=== PATIENT | male | born 1930 | race Caucasian/White ===

== ENCOUNTER → 2016-07-31 | Outpatient (CLI) | payer MEDICARE ==
[2016-05-14 17:15] VITALS: BP 130/61
[~2016-07-31] MED LIST: ACET160S PO; AMLO2.5T PO; AMLO5TAB2 PO; ASPI325T4 PO; ASPI81TA44 PO; ASPI81TA50 PO; ATOR20TA58 PO; ATOR40TA59 PO; CARV12.5 PO; CARV25TA2 PO; CARV3.122 PO; CHOL10002 PO; CLOP75TA27 PO; CYAN100031 IM; CYCL1DRO EACHEYE; CYCL1DRO OU; DONE10TA14 PO; DONE10TA34 PO; DONE10TA7 PO; FLUO20CA8 PO; FOLI1TAB16 PO; FURO-69 PO; HYDR-2666 PO; INSU100C4 SQ; INSU100V13 SQ; IOHEXOL 240 MG/ML 50ML VIAL. ONE; LISI-334 PO; LISI40TA PO; MEMA10TA PO; MULT1CAP PO; NAPR220T70 PO; NITR0.4T6 SL; OMEG1CAP6 PO; PHEN300C4 PO; RIVA10TA PO; SENN-37 PO; TAMS0.4C2 PO; VITA400C11 PO
[2016-07-31] MEDS: IOHEXOL 300 MG/ML 75 ML VIAL. IV ONE (11:55)
--- NOTE | 2016-07-31 12:51 | RAD ---
CT of the abdomen and pelvis with contrast, 07/31/2016: History: Diarrhea Multidetector CT imaging was performed following oral and IV administration of contrast. Comparison is made to a study from 04/02/2013. The liver is unremarkable. A small amount of material of increased density is noted layering posteriorly in the gallbladder. This was also present on the previous study. This probably represents tiny calculi. No gallbladder wall thickening or pericholecystic edema is seen. No pancreatic abnormality is detected. The spleen is of normal size. There is moderate bilateral renal cortical scarring. There is no evidence of renal obstruction or a mass. The adrenal glands are unremarkable. There is moderate aortoiliac calcific plaquing without evidence of aneurysm. No abdominal or pelvic adenopathy is seen.. The prostate gland is moderately enlarged. There is a 2.5 cm cystic structure along the posterior wall of the urinary bladder on the left adjacent to the left seminal vesicle. This probably represents a bladder diverticulum. A cyst related to the seminal vesicles less likely. Mild diffuse bladder wall thickening is probably due to some degree of chronic bladder outlet obstruction. No bowel dilatation is evident. No definite mural thickening is seen. The appendix is unremarkable. No free fluid or free air is evident in the abdomen or pelvis. A tubing within the anterior aspect of the abdomen most likely represents the inferior aspect of a CORPORATE FINANCIAL ANALYST shunt tube. There are moderate multilevel degenerative changes in the spine. There is a grade 1 spondylolisthesis at L4-5 due to facet joint arthropathy. IMPRESSION: 1. Cholelithiasis without evidence of cholecystitis. 2. Moderate nonspecific prostatic enlargement. 3. Mild diffuse bladder wall thickening probably due to chronic bladder outlet obstruction. 4. Small bladder diverticulum. 5. Bilateral renal scarring. 6. Extensive aortoiliac atherosclerotic plaquing. 7. No acute abdominal or pelvic abnormality is detected. PQRS Compliance Statement: One or more of the following individualized dose reduction techniques were utilized for this examination: 1. Automated exposure control 2. Adjustment of the mA and/or kV according to patient size 3. Use of iterative reconstruction technique
== END | disposition home or self-care (01) ==
LOC: CT 10:54
PROVIDERS: ATTEND Family Medicine
DX: N32.0 Bladder-neck obstruction (principal); I70.0 Atherosclerosis of aorta; L90.5 Scar conditions and fibrosis of skin; N32.3 Diverticulum of bladder; N40.0 Benign prostatic hyperplasia without lower urinary tract symptoms; M43.16 Spondylolisthesis, lumbar region; M12.88 Other specific arthropathies, not elsewhere classified, other specified site; R19.7 Diarrhea, unspecified
CPT/HCPCS: 74177; Q9966; Q9967

== ENCOUNTER 2016-12-14 09:48 | Emergency (ER) | payer MEDICARE ==
[~2016-12-14 09:48] MED LIST changes: -ASPI325T4 PO; +ASPI325T8 PO; -CLOP75TA27 PO; +CLOP75TA57 PO; -DONE10TA34 PO; +DONE10TA61 PO; -HYDR-2666 PO; +HYDR-2758 PO; -IOHEXOL 240 MG/ML 50ML VIAL. ONE; +NITR0.4T22 SL; -NITR0.4T6 SL
--- NOTE | 2016-12-14 10:11 | PHYS DOC ---
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 Patient did not lose consciousness he is able to go on the floor and on his feet. Patient denies pain anywhere else except on the back of her head. Review of Systems Review of Systems Constitutional: Denies fever or chills [] Eyes: Denies change in visual acuity, redness, or eye pain [] HENT: Denies nasal congestion or sore throat. yes to head pain Respiratory: Denies cough or shortness of breath [] Cardiovascular: No chest pain GI: Denies abdominal pain, Musculoskeletal: Denies back pain or joint pain [] Integument: Denies rash or skin lesions [] Neurologic: Denies headache, focal weakness or sensory changes [] Allergies Allergies Allergies Coded Allergies Type Severity Reaction Last Updated Verified Penicillins Allergy Severe Swelling 03/25/16 Yes Physical Exam Physical Exam Constitutional: Well developed, well nourished, no acute distress, non-toxic appearance. [] HENT: Normocephalic, atraumatic, no signs of basilar skull fracture Eyes:EOMI, conjunctiva normal, no discharge. [] Neck: Normal range of motion, no tenderness, no step-offs Cardiovascular:Heart rate regular rhythm, no murmur, normal perfusion. No chest tenderness no deformity Lungs & Thorax: No tachypnea Abdomen: Soft, nontender, nondistended Skin: Warm, dry, no erythema, no rash. [] Back: No tenderness, no step-offs] Extremities: No tenderness, no cyanosis, no DVT, ROM intact, no edema. [] Neurologic: Alert and oriented X 3, normal motor function, no focal deficits noted. [] Psychologic: Affect normal, judgement normal, mood normal. [] EKG EKG [] Radiology/Procedures Radiology/Procedures There is no evidence of midline shift. Moderate bilateral periventricular white matter hypodensities likely chronic small vessel ischemic disease. Unchanged right frontal ventriculostomy catheter with the tip projecting into the left lateral ventricle region. There is no acute intracranial bleed or extra-axial fluid collection identified. The arthur-white matter differentiation is maintained. The basal cisterns are uneffaced. The visualized paranasal sinuses, mastoid air cells are clear. Impression: 1. No acute intracranial findings.[] Course & Med Decision Making Course & Med Decision Making Pertinent Labs and Imaging studies reviewed. (See chart for details) [] Dragon Disclaimer Dragon Disclaimer This chart was dictated in whole or in part using Voice Recognition software in a busy, high-work load, and often noisy Emergency Department environment. It may contain unintended and wholly unrecognized errors or omissions. Departure Departure: Impression: Primary Impression: Closed head injury Referrals: CHRISTIANO JOSUE MD (PCP) follow up with your doctor in 3-5 days for recheck if you are having any leftover symptoms from todays head injury Patient Instructions: Head Injury, Adult Amena MARINELLI MD Dec 14, 2016 10:11
--- NOTE | 2016-12-14 10:34 | RAD ---
Examination: CT head without contrast History: History of fall, hitting back of the head. Comparison: 05/14/2016 Technique: Axial CT images of the head was performed with contrast PQRS Compliance Statement: One or more of the following individualized dose reduction techniques were utilized for this examination: 1. Automated exposure control 2. Adjustment of the mA and/or kV according to patient size 3. Use of iterative reconstruction technique. Findings: There is no evidence of midline shift. Moderate bilateral periventricular white matter hypodensities likely chronic small vessel ischemic disease. Unchanged right frontal ventriculostomy catheter with the tip projecting into the left lateral ventricle region. There is no acute intracranial bleed or extra-axial fluid collection identified. The arthur-white matter differentiation is maintained. The basal cisterns are uneffaced. The visualized paranasal sinuses, mastoid air cells are clear. Impression: 1. No acute intracranial findings.
[2016-12-14 10:45] VITALS: BP 156/77
== END 2016-12-14 10:50 | disposition home or self-care (01) ==
LOC: ER 09:58
DX: S09.8XXA Other specified injuries of head, initial encounter (principal); I11.0 Hypertensive heart disease with heart failure; I50.9 Heart failure, unspecified; I25.810 Atherosclerosis of coronary artery bypass graft(s) without angina pectoris; E11.9 Type 2 diabetes mellitus without complications; Z88.0 Allergy status to penicillin; W18.09XA Striking against other object with subsequent fall, initial encounter; Y93.89 Activity, other specified; Y99.8 Other external cause status; Y92.89 Other specified places as the place of occurrence of the external cause
CPT/HCPCS: 70450; 99284-25

== ENCOUNTER 2017-07-04 23:26 | Emergency (ER) | payer MEDICARE ==
[~2017-07-04] VITALS: Ht 177.8 cm; Wt 74.8 kg
--- NOTE | 2017-07-04 23:47 | ED.ADGEN ---
Past History Past Medical History: Bronchitis, CAD, CHF, Diabetes, High Cholesterol, Heart Disease, Hypertension, Seizure, UTI, Other Past Surgical History: Coronary Bypass Surgery, Other Smoking: Non-smoker Alcohol Use: None Drug Use: None Adult General Chief Complaint Chief Complaint fall, struck head HPI HPI Patient is a 86 year old male who presents after a fall. Pt was at home when he tripped and fell over his dog (who is blind). He struck his head on the floor but denied LOC. This occurred about 5+ hours prior to arrival and attempted to stay at home, but when family gave the pt a shower, the head wounds started to bleed "a lot" which caused them to come in. 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 Pt has had more difficulty ambulating since the fall, normally uses a walker. No blood thinners reported. Reports chronic sob at baseline. PCP is Dr. Lima. Review of Systems Review of Systems Constitutional: Denies fever or chills [] Eyes: Denies change in visual acuity, redness, or eye pain [] HENT: Denies nasal congestion or sore throat [] Respiratory: Denies cough Cardiovascular: denies chest pain GI: Denies abdominal pain, nausea, vomiting, bloody stools or diarrhea [] : Denies dysuria or hematuria [] Musculoskeletal: reports back pain , denies joint pain [] Integument: Denies rash or skin lesions [] Neurologic: Denies headache, focal weakness or sensory changes [] Allergies Allergies Allergies Coded Allergies Type Severity Reaction Last Updated Verified Penicillins Allergy Severe Swelling 03/25/16 Yes Physical Exam Physical Exam Constitutional: Well developed, well nourished, no acute distress, non-toxic appearance. [] HENT: Normocephalic, proximal scalp hematoma without signs of active bleeding, no bogginess, bilateral external ears normal, oropharynx moist, no oral exudates , nose normal. [] Eyes: PERRLA, EOMI, conjunctiva normal, no discharge. [] Neck: Normal range of motion, no tenderness, supple, no stridor. [] Cardiovascular:Heart rate regular with regular rhythm, no murmur [] Lungs & Thorax: Bilateral breath sounds clear to auscultation, no wheeze or crackles Abdomen:soft, no tenderness, no masses, no pulsatile masses. [] Skin: Warm, dry, no erythema, no rash. [] Back: proximal T spine ttp without stepoffs, otherwise no TTP over the spine, no CVA tenderness. no signs of trauma Extremities: No tenderness, no cyanosis, no clubbing, ROM intact, no edema. no ttp over bilateral hips, moves all extremities, no deformity Neurologic: Alert and oriented , normal motor function, normal sensory function , no focal deficits noted. [] Current Patient Data Vital Signs Vital Signs Date Time Temp Pulse Resp B/P (MAP) Pulse Ox O2 Delivery O2 Flow Rate FiO2 07/05/17 00:53 60 18 129/70 (89) 97 Room Air 07/04/17 23:38 98.5 EKG EKG [] Radiology/Procedures Radiology/Procedures CT head/neck/T spine/pelvis:[] IMPRESSION: 1. No acute intracranial findings. 2. Stable moderate enlargement of the anterior aspect of the third ventricle status post shunting. 3. Mild atrophy and chronic microangiopathic white matter change for patient age. 4. No cervical fracture or malalignment. 5. Moderate to severe cervical degenerative changes as detailed above. Central canal stenosis is up to moderate at C5-6. Multilevel bilateral neural foraminal stenosis is up to moderate/severe from C5 through C7. MRI could further characterize stenosis if there is persistent concern. T spine: IMPRESSION: 1. No acute fracture. 2. Moderate degenerative changes as above. Pelvis: IMPRESSION: 1. No fracture. 2. Grade 1 anterolisthesis at L4-5. Lumbar central canal stenosis is moderate to severe from L3 through L5. Course & Med Decision Making Course & Med Decision Making Pertinent Labs and Imaging studies reviewed. (See chart for details) Pt appears stable, head bleeding controlled. CT's performed. No acute findings. Pt is anxious to go home. Recommend caution and close f/u with PCP. Return precautions given. Final Impression Final Impression closed head injury fall[] Problems: Dragon Disclaimer Dragon Disclaimer This electronic medical record was generated, in whole or in part, using a voice recognition dictation system. RAFFI FORD MD Jul 04, 2017 23:47
--- NOTE | 2017-07-05 01:15 | RAD ---
EXAM: 1. CT HEAD WITHOUT CONTRAST. 2. CT CERVICAL SPINE WITHOUT CONTRAST. HISTORY: Fall with head injury. TECHNIQUE: Computed tomography of the head and cervical spine was performed without intravenous contrast. COMPARISON: September 03, 2015. FINDINGS: There is no intracranial hemorrhage. There is mild chronic microangiopathic white matter change for patient age. A right frontal ventriculostomy catheter crosses the midline and has its tip within the left anteromedial thalamus, unchanged. The anterior aspect of the third ventricle is prominent but unchanged. The lateral ventricles are decompressed. There is overall mild to moderate atrophy for patient age. The visualized paranasal sinuses appear clear. There are changes of bilateral cataract surgery. The temporal bones are unremarkable. The calvarium reveals no suspicious lesions. There are atherosclerotic calcifications of the internal carotid and vertebral arteries. A mass in the left parotid gland measures 2.2 x 1.5 cm. Carotid atherosclerotic calcifications are noted. Cervical alignment is maintained. There is mild osteoarthritis at C1-2. No fractures are identified. Degenerative disc disease is moderate to severe at C6-7, moderate at C5-6 and mild more superiorly. There is no prevertebral soft tissue swelling. There is diffuse moderate to severe facet and uncovertebral osteoarthritis. There are moderate posterior disc-osteophyte complexes from C4 through C7. Central canal stenosis appears moderate at C5-6, mild at C4-5 and mild at C6-7. Neural foraminal stenosis is moderate to severe bilaterally from C5 through C7, and moderate bilaterally at C4-5. IMPRESSION: 1. No acute intracranial findings. 2. Stable moderate enlargement of the anterior aspect of the third ventricle status post shunting. 3. Mild atrophy and chronic microangiopathic white matter change for patient age. 4. No cervical fracture or malalignment. 5. Moderate to severe cervical degenerative changes as detailed above. Central canal stenosis is up to moderate at C5-6. Multilevel bilateral neural foraminal stenosis is up to moderate/severe from C5 through C7. MRI could further characterize stenosis if there is persistent concern. *One or more of the following individualized dose reduction techniques were utilized for this examination: 1. Automated exposure control. 2. Adjustment of the mA and/or kV according to patient size. 3. Use of iterative reconstruction technique. Electronically signed by: Doc Haney MD (07/05/2017 1:12 AM) [place] [id number]
--- NOTE | 2017-07-05 01:20 | RAD ---
EXAM: CT thoracic spine without contrast. HISTORY: Fall. TECHNIQUE: CT of the thoracic spine was performed without intravenous contrast. COMPARISON: None. FINDINGS: There is a mild thoracic dextroscoliosis. There is mild loss of vertebral body height at T7-T9, but this appears chronic. No acute fractures are seen. Degenerative disc disease is severe at T3-4, and moderate throughout the mid thoracic spine. It is mild inferiorly. Facet osteoarthritis is moderate in the upper and mid thoracic spine. Neural foraminal stenosis is at least moderate bilaterally from T2 through T5. There is no clear central canal stenosis throughout. Atherosclerotic calcifications are noted. Coronary artery bypass grafting changes are noted. Lung windows reveal mild dependent atelectasis. IMPRESSION: 1. No acute fracture. 2. Moderate degenerative changes as above. *One or more of the following individualized dose reduction techniques were utilized for this examination: 1. Automated exposure control. 2. Adjustment of the mA and/or kV according to patient size. 3. Use of iterative reconstruction technique. Electronically signed by: Doc Haney MD (07/05/2017 1:18 AM) [facility]
--- NOTE | 2017-07-05 01:24 | RAD ---
EXAM: CT pelvis without contrast. HISTORY: Fall. Pelvic pain. TECHNIQUE: CT of the pelvis was performed without intravenous contrast. COMPARISON: July 31, 2016. FINDINGS: There is grade 1/2 anterolisthesis at L4-5. Central canal stenosis is moderate to severe from L3 through L5. There are laminectomy changes at L4. No fractures are identified. The right sacroiliac joint is partially ankylosed. There is mild sacroiliac osteoarthritis bilaterally. The pubic symphysis appears normal. The joint spaces of both hips are only mildly narrowed. Alignment is normal. There is no soft tissue hematoma. Images of the pelvic organs demonstrate moderate to severe benign prostatic hypertrophy. A bladder diverticulum posteriorly on the left versus a left seminal vesicle cyst measures 3.5 cm is stable. There are diffuse atherosclerotic calcifications. IMPRESSION: 1. No fracture. 2. Grade 1 anterolisthesis at L4-5. Lumbar central canal stenosis is moderate to severe from L3 through L5. *One or more of the following individualized dose reduction techniques were utilized for this examination: 1. Automated exposure control. 2. Adjustment of the mA and/or kV according to patient size. 3. Use of iterative reconstruction technique. Electronically signed by: Doc Haney MD (07/05/2017 1:21 AM) [facility]
[2017-07-05 01:29] VITALS: BP 131/65
== END 2017-07-05 01:29 | disposition home or self-care (01) ==
LOC: ER 23:26
DX: S09.90XA Unspecified injury of head, initial encounter (principal); I11.0 Hypertensive heart disease with heart failure; I50.9 Heart failure, unspecified; E78.00 Pure hypercholesterolemia, unspecified; I25.10 Atherosclerotic heart disease of native coronary artery without angina pectoris; Z87.440 Personal history of urinary (tract) infections; E11.9 Type 2 diabetes mellitus without complications; Z95.1 Presence of aortocoronary bypass graft; Z88.0 Allergy status to penicillin; W01.0XXA Fall on same level from slipping, tripping and stumbling without subsequent striking against object, initial encounter; Y93.89 Activity, other specified; Y92.098 Other place in other non-institutional residence as the place of occurrence of the external cause; Y99.8 Other external cause status
CPT/HCPCS: 70450; 72125; 72128; 72192; 99284-25

== ENCOUNTER 2018-02-20 15:51 | Inpatient (IN) | payer MEDICARE ==
[~2018-02-20] VITALS: Ht 177.8 cm; Wt 70.0 kg
[~2018-02-20 15:51] MED LIST changes: -AMLO2.5T PO; +AMLO2.5T3 PO; -AMLO5TAB2 PO; +AMLO5TAB7 PO; -ASPI81TA44 PO; +ASPI81TA59 PO
--- NOTE | 2018-02-20 17:06 | RAD ---
CT HEAD WO CONTRAST dated 02/20/2018 4:49 PM Indication:fell today, hit right side forehead, headache/dizziness Comparison: 07/05/2017. Technique: Noncontrast images were performed. One or more of the following individualized dose reduction techniques were utilized for this examination: 1. Automated exposure control 2. Adjustment of the mA and/or kV according to patient size 3. Use of iterative reconstruction technique Findings: A ventriculostomy tube remains in place. There is no apparent intracranial hemorrhage or abnormal extra-axial fluid collection. No new area of abnormal density is identified in the brain. The ventricles and basilar cisterns are normally positioned. Bone windows demonstrate no apparent fracture of the skull or abnormal sinus or mastoid opacification. IMPRESSION: No acute intracranial abnormality. Electronically signed by: Josue Graham Jr., MD (02/20/2018 5:02 PM) [facility]
--- NOTE | 2018-02-20 17:23 | EKG ---
[address] [address] Test Date: 2018-02-20 Test Time: 16:44:14 Pat Name: GAUTAM SALEEM Department: Room: Gender: M 2[address] Pressman: : 1930 Requested By: DAVID CAUSEY Order Number: [id number] Reading MD: Antony Meza MD Measurements Intervals [place] Rate: 56 P: -3 WV: 198 QRS: -56 QRSD: 140 T: 93 QT: 472 QTc: 458 Interpretive Statements SINUS RHYTHM IVCD CONSIDER LVH Electronically Signed On 02-23-2018 10:04:27 INSECT CONTROL AIDE by Antony Meza MD
--- NOTE | 2018-02-20 17:24 | PHYS DOC ---
Past History Past Medical History: Anemia, Arthritis, Dementia, Depression Past Surgical History: Tonsillectomy Smoking: Non-smoker Alcohol Use: Rarely Drug Use: None Adult General Chief Complaint Chief Complaint: MECHANICAL FALL HPI HPI 87-year-old male presents via private vehicle with fall at home. Patient has dementia at baseline. The patient does not remember what happened. His accompanies him tells me that she did not witness his fall. When she found him he was going to the restroom in the trashcan and had a small area of blood on his right forehead. He was acting "more out of it than usual". This lasted until they got to the emergency room. The patient has improved and is back at baseline now according to his . Patient was recently diagnosed with UTI and treated with antibiotics. He has also had frequent diarrhea for several months. Patient denies any pain except for headache. Review of Systems Review of Systems Constitutional: Denies fever or chills [] Eyes: Denies change in visual acuity, redness, or eye pain [] HENT: Denies nasal congestion or sore throat [] Respiratory: Denies cough or shortness of breath [] Cardiovascular: No additional information not addressed in HPI [] GI: Denies abdominal pain, nausea, vomiting, bloody stools or diarrhea [] : Denies dysuria or hematuria [] Musculoskeletal: Denies back pain or joint pain [] Integument: Forehead abrasion[] Neurologic: Denies headache, focal weakness or sensory changes [] Endocrine: Denies polyuria or polydipsia [] All other systems were reviewed and found to be within normal limits, except as documented in this note. Allergies Allergies Allergies Coded Allergies Type Severity Reaction Last Updated Verified Penicillins Allergy Severe Swelling 03/25/16 Yes Physical Exam Physical Exam Constitutional: Well developed, well nourished, no acute distress, non-toxic appearance. [] HENT: Normocephalic, atraumatic, bilateral external ears normal, oropharynx moist, no oral exudates, nose normal. [] Eyes: PERRLA, EOMI, conjunctiva normal, no discharge. [] Neck: Normal range of motion, no tenderness, supple, no stridor. [] Cardiovascular:Heart rate regular rhythm, no murmur [] Lungs & Thorax: Bilateral breath sounds clear to auscultation [] Abdomen: Bowel sounds normal, soft, no tenderness, no masses, no pulsatile masses. [] Skin: Abrasion on right forehead[] Back: No tenderness, no CVA tenderness. [] Extremities: No tenderness, no cyanosis, no clubbing, ROM intact, no edema. [] Neurologic: Alert and oriented to self and place. Normal motor function, normal sensory function, no focal deficits noted. Impaired memory.[] Psychologic: Affect normal, mood normal. [] EKG EKG Sinus rhythm, rate 56, left axis deviation, intraventricular block, no ST elevations or depressions.[] Radiology/Procedures Radiology/Procedures [] Impressions: CT HEAD WO CONTRAST dated 02/20/2018 4:49 PM Indication:fell today, hit right side forehead, headache/dizziness Comparison: 07/05/2017. Technique: Noncontrast images were performed. One or more of the following individualized dose reduction techniques were utilized for this examination: 1. Automated exposure control 2. Adjustment of the mA and/or kV according to patient size 3. Use of iterative reconstruction technique Findings: A ventriculostomy tube remains in place. There is no apparent intracranial hemorrhage or abnormal extra-axial fluid collection. No new area of abnormal density is identified in the brain. The ventricles and basilar cisterns are normally positioned. Bone windows demonstrate no apparent fracture of the skull or abnormal sinus or mastoid opacification. IMPRESSION: No acute intracranial abnormality. Electronically signed by: Josue Graham Jr., MD (02/20/2018 5:02 PM) [facility] DICTATED AND SIGNED BY: JOSUE GRAHAM Jr, MD DATE: 02/20/18 1700 CC: CHRISTIANO JOSUE MD; DAVID CAUSEY DO ~ Course & Med Decision Making Course & Med Decision Making Pertinent Labs and Imaging studies reviewed. (See chart for details) Patient's head CT is negative for acute findings. His EKG is unremarkable. His labs are unremarkable. His urine is pending. Even though the patient appears to back at baseline, his spouse is concerned about his altered mental status earlier. I agree that it is reasonable to observe the patient further in the hospital. He would also be able to have his diarrhea more thoroughly evaluated. Dr. Luz agreed to admit the patient. Dragon Disclaimer Dragon Disclaimer This electronic medical record was generated, in whole or in part, using a voice recognition dictation system. Departure Departure: Referrals: CHRISTIANO JOSUE MD (PCP) DAVID CAUSEY DO Feb 20, 2018 17:24
[2018-02-20 17:31] LABS: BASO # 0.1 x10^3/uL (0.0-0.2); BASO % 1 % (0-3); EOS # 0.2 x10^3/uL (0.0-0.7); EOS % 2 % (0-3); HEMATOCRIT 40.9 % (39.0-53.0); HEMOGLOBIN 13.5 g/dL (13.0-17.5); LYMPH # 0.8 x10^3/uL (1.0-4.8); LYMPH % 8 % (24-48); MEAN CORPUSCULAR HEMOGLOBIN 31 pg (25-35); MEAN CORPUSCULAR HGB CONC 33 g/dL (31-37); MEAN CORPUSCULAR VOLUME 93 fL (79-100); MONO # 0.6 x10^3/uL (0.0-1.1); MONO % 6 % (0-9); NEUT # 8.3 x10^3uL (1.8-7.7); NEUT % 82 % (31-73); PLATELET COUNT 245 x10^3/uL (140-400); RED BLOOD COUNT 4.41 x10^6/uL (4.30-5.70); RED CELL DISTRIBUTION WIDTH 14.1 % (11.5-14.5)
[2018-02-20 17:38] LABS: CALCIUM 8.9 mg/dL (8.5-10.1); CREATININE 1.1 mg/dL (0.7-1.3); POTASSIUM 4.2 mmol/L (3.5-5.1)
[2018-02-20] MEDS ORDERED: ONDANSETRON PF 4 MG/2 ML VIAL. IV PRN (18:45)
[2018-02-20 19:22] LABS: BILIRUBIN,URINE NEG (NEG); CLARITY,URINE CLEAR; COLOR,URINE YELLOW; GLUCOSE,URINE NEG (NEG); HYALINE CASTS, URINE MOD /HPF; NITRITE,URINE NEG (NEG); UROBILINOGEN,URINE 0.2 mg/dL (0.2 mg/dL)
[2018-02-20 19:23] LABS: SQUAMOUS EPITHELIAL CELL,UR FEW /LPF
[2018-02-20 19:27] LABS: BACTERIA,URINE 0 /HPF (0-FEW); RBC,URINE OCC /HPF (0-2)
[2018-02-20] MEDS ORDERED: POTASSIUM CHLORIDE 20MEQ 100 ML IV ONE (19:47)
[2018-02-20 21:14] VITALS: BP 189/84
--- NOTE | 2018-02-20 21:14 | NUR ---
The patient, GAUTAM SALEEM, 87 y/o, M admitted by GEOVANNA BARNEY DO, was given written information regarding hospital policies, unit procedures and contact persons. Valuables were checked and logged. Pt requested a box lunch and pt ate 100%. Pt is forgetful, and pt's and son was answering questions for the patient while he rested. Call light at bedside. Will continue to monitor.
[2018-02-20] MEDS ORDERED: CARV6.252 PO (22:03)
[2018-02-20] MEDS ORDERED: LISI-338 PO (22:03)
[2018-02-20] MEDS ORDERED: NITROGLYCERIN SUBLINGUAL 0.4 MG BOTTLE OF 25. SL PRN (22:15)
[2018-02-20] MEDS ORDERED: ATORVASTATIN CALCIUM 20 MG TABLET PO SCH (23:00)
[2018-02-20] MEDS ORDERED: MEMANTINE 5 MG TABLET. PO ONE (23:00)
[2018-02-20] MEDS ORDERED: PHENYTOIN SODIUM EXTENDED 100 MG CAPSULE PO SCH (23:00)
[2018-02-20] MEDS ORDERED: TAMSULOSIN 0.4 MG CAP.ER.24H. PO SCH (23:00)
[2018-02-20] MEDS: CARVEDILOL 6.25 MG TABLET PO SCH (23:13)
--- NOTE | 2018-02-21 04:29 | PDOC1 ---
History and Physical HPI: HPI: 7-year-old male presents via private vehicle with fall at home. Patient has dementia at baseline. The patient does not remember what happened. His accompanies him tells me that she did not witness his fall. When she found him [facility] and had a small area of blood on his right forehead. He was acting "more out of it than usual". This lasted until they got to the emergency room. The patient has improved and is back at baseline now according to his . Patient was recently diagnosed with UTI and treated with antibiotics. He has also had frequent diarrhea for several months. Patient denies any pain except for headache. 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 Heme/Onc: Anemia NOS Psych: Depression Musculoskeletal: Osteoarthritis Past Surgical History: PSH: tonsillectomy Social History: Smoke: No Alcohol: rare Drugs: None Allergies: Allergies: Coded Allergies: Penicillins (Verified Allergy, Severe, Swelling, 03/25/16) Current Medications: Current Medications: Current Medications Medications (Trade) Dose Ordered Sig/Chacha Start Time Stop Time Status Last Admin Dose Admin Aspirin (Children'S Aspirin) 81 mg DAILYWBKFT 02/21/18 08:00 Atorvastatin Calcium (Lipitor) 40 mg QHS 02/20/18 23:00 02/20/18 23:12 40 MG Carvedilol (Coreg) 6.25 mg BIDWMEALS 02/20/18 23:00 02/20/18 23:13 6.25 MG Cyclosporine (Restasis) 1 drop BID 02/21/18 09:00 Donepezil HCl (Aricept) 20 mg DAILY 02/21/18 09:00 Fluoxetine HCl (PROzac) 20 mg DAILY 02/21/18 09:00 Folic Acid (Folic Acid) 1 mg DAILY 02/21/18 09:00 Lisinopril (Prinivil) 5 mg DAILY 02/21/18 09:00 Memantine (Namenda) 10 mg 1X ONCE 02/20/18 23:00 02/20/18 23:01 DC 02/20/18 23:12 10 MG Multivitamins/ Calcium (Thera-M Plus) 1 tab DAILY 02/21/18 09:00 Nitroglycerin (Nitrostat) 0.4 mg PRN Q5MIN PRN 02/20/18 22:15 Ondansetron HCl (Zofran) 4 mg PRN Q4HRS PRN 02/20/18 18:45 02/21/18 18:44 Phenytoin Sodium (Dilantin) 300 mg QHS 02/20/18 23:00 02/20/18 23:12 300 MG Potassium Chloride 100 ml @ As Directed STK-MED ONCE 02/20/18 19:47 02/20/18 19:48 DC Tamsulosin HCl (Flomax) 0.4 mg HS 02/20/18 23:00 02/20/18 23:13 0.4 MG Vitamin D (Vitamin D3) 1,000 unit DAILY 02/21/18 09:00 Vitamin E 400 unit DAILY 02/21/18 09:00 ROS: ROS: Constitutional: No fever or chills Eyes: No eye pain or blurred vision Skin: No rash or itching Cardiovascular: No chest pain, syncope, palpitations, dyspnea on exertion, or edema Respiratory: No cough or difficulty breathing Gastrointestinal: No nausea, vomiting, or abdominal pain Neurologic: No headaches or focal neurologic deficits Endocrine: No heat or cold intolerance Genitourinary: No incontinence or hematuria Musculoskeletal: No joint pain or swelling Lymphatics: No enlarged lymph nodes Psychiatric: No anxiety or depression PE: PE: Gen.: Alert, pleasant, no apparent distress HEENT: Normocephalic atraumatic, PERRLA EOMI, no scleral icterus, oral mucosa pink and moist Neck: Supple, no lymphadenopathy, nontender Cardiovascular: Normal S1 and S2 no murmurs Pulmonary: Lungs are clear bilaterally with good air movement no respiratory distress Abdomen: Soft nontender non-distended, bowel sounds present no masses Extremities: No clubbing, cyanosis or edema Neuro: Alert and oriented 3, cranial nerves II through XII grossly intact, no lateralizing neuro deficits Skin: Warm, dry Vitals: Vitals: Vital Signs Date Time Temp Pulse Resp B/P (MAP) Pulse Ox O2 Delivery O2 Flow Rate FiO2 02/20/18 23:13 63 189/84 02/20/18 21:14 97.7 20 99 Room Air Labs: Labs: Laboratory Tests Test 02/20/18 17:00 02/20/18 18:59 02/20/18 21:40 White Blood Count 10.0 x10^3/uL (4.0-11.0) Red Blood Count 4.41 x10^6/uL (4.30-5.70) Hemoglobin 13.5 g/dL (13.0-17.5) Hematocrit 40.9 % (39.0-53.0) Mean Corpuscular Volume 93 fL (79-100) Mean Corpuscular Hemoglobin 31 pg (25-35) Mean Corpuscular Hemoglobin Concent 33 g/dL (31-37) Red Cell Distribution Width 14.1 % (11.5-14.5) Platelet Count 245 x10^3/uL (140-400) Neutrophils (%) (Auto) 82 % (31-73) Lymphocytes (%) (Auto) 8 % (24-48) Monocytes (%) (Auto) 6 % (0-9) Eosinophils (%) (Auto) 2 % (0-3) Basophils (%) (Auto) 1 % (0-3) Neutrophils # (Auto) 8.3 x10^3uL (1.8-7.7) Lymphocytes # (Auto) 0.8 x10^3/uL (1.0-4.8) Monocytes # (Auto) 0.6 x10^3/uL (0.0-1.1) Eosinophils # (Auto) 0.2 x10^3/uL (0.0-0.7) Basophils # (Auto) 0.1 x10^3/uL (0.0-0.2) Sodium Level 134 mmol/L (136-145) Potassium Level 4.2 mmol/L (3.5-5.1) Chloride Level 99 mmol/L (98-107) Carbon Dioxide Level 30 mmol/L (21-32) Anion Gap 5 (6-14) Blood Urea Nitrogen 19 mg/dL (8-26) Creatinine 1.1 mg/dL (0.7-1.3) Estimated GFR (Cockcroft-Gault) 63.0 Glucose Level 177 mg/dL (70-99) Calcium Level 8.9 mg/dL (8.5-10.1) Troponin I Quantitative < 0.017 ng/mL (0-0.055) Urine Collection Type Void Urine Color Yellow Urine Clarity Clear Urine pH 7.0 Urine Specific [place] 1.020 Urine Protein 100 mg/dl (NEG-TRACE) Urine Glucose (UA) Neg mg/dL (NEG) Urine Ketones (Stick) Neg mg/dL (NEG) Urine Blood Neg (NEG) Urine Nitrite Neg (NEG) Urine Bilirubin Neg (NEG) Urine Urobilinogen Dipstick 0.2 mg/dL (0.2 mg/dL) Urine Leukocyte Esterase Neg (NEG) Urine RBC Occ /HPF (0-2) Urine WBC 1-4 /HPF (0-4) Urine Squamous Epithelial Cells Few /LPF Urine Bacteria 0 /HPF (0-FEW) Urine Hyaline Casts Mod /HPF Urine Mucus Slight /LPF Glucose (Fingerstick) 124 mg/dL (70-99) Images: Images: PATIENT: GAUTAM SALEEM ACCOUNT: [id number] : 1930 LOCATION: ER AGE: 87 SEX: M EXAM STATUS: REG ER ORD. PHYSICIAN: DAVID CAUSEY DO REASON: fall PROCEDURE: CT HEAD WO CONTRAST CT HEAD WO CONTRAST dated 02/20/2018 4:49 PM Indication:fell today, hit right side forehead, headache/dizziness Comparison: 07/05/2017. Technique: Noncontrast images were performed. One or more of the following individualized dose reduction techniques were utilized for this examination: 1. Automated exposure control 2. Adjustment of the mA and/or kV according to patient size 3. Use of iterative reconstruction technique Findings: A ventriculostomy tube remains in place. There is no apparent intracranial hemorrhage or abnormal extra-axial fluid collection. No new area of abnormal density is identified in the brain. The ventricles and basilar cisterns are normally positioned. Bone windows demonstrate no apparent fracture of the skull or abnormal sinus or mastoid opacification. IMPRESSION: No acute intracranial abnormality. Electronically signed by: Josue Graham Jr., MD (02/20/2018 5:02 PM) [facility] GEOVANNA BARNEY DO Feb 21, 2018 04:29
[2018-02-21 05:23] VITALS: BP 151/74
[2018-02-21] MEDS ORDERED: ASPIRIN 81 MG TAB.CHEW PO SCH (08:00)
[2018-02-21 08:02] VITALS: BP 151/74
[2018-02-21] MEDS: CARVEDILOL 6.25 MG TABLET PO SCH (08:02)
--- NOTE | 2018-02-21 08:18 | PDOC1 ---
History of Present Illness History of Present Illness 87-year-old male presented to ED yesterday via private vehicle with reported fall at home. Patient has some dementia at baseline. Fall was reportedly unwitnessed. When his spouse found him he was going to the restroom in the trash can and had a small area of blood on his right forehead. She felt he was acting "more out of it than usual". This lasted until they got to the emergency room. The patient had improved to his baseline on ED arrival according to his . Patient was recently diagnosed with UTI and treated with antibiotics. Also some loose stools no blood or fever. Patient was admitted for observation overnight CT of the head was negative in the emergency department. Patient's nurse states that he has been alert and oriented and appropriate. He has not had any loose stools nausea vomiting or abdominal pain complaints. He has been requesting to go home. I find him sitting on the edge of his bed getting ready to use his urinal. He tells me that he remembers tripping and falling at home hitting his head on a shelf. He is unable to tell me if he lost consciousness but does deny neck pain nausea photophobia new focal neurologic deficits, and denies headache. He does not want any further evaluation and is simply wants to go home. 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 See HPI for pertinent positives and negative responses, other holt all other systems are negative, non pertinent or non contributory Constitutional: No: Fever, Chills, Sweats, Weakness Eyes: No: Eye Pain, Photophobia ENT: No: Ear pain, Ear discharge, Nose discharge, Nose congestion Respiratory: No: Cough, Shortness of breath Cardiovascular: No: Chest Pain, Palpitations Gastrointestinal: No: Nausea, Vomiting Musculoskeletal: No: Joint Pain, Joint Stiffness Neurological: No: Headaches, Impaired Coord/balance, Memory Loss, Numbness/ Tingling Medications Current Medications Ondansetron HCl (Zofran) 4 mg PRN Q4HRS PRN IV NAUSEA/VOMITING; Start at 18:45; Stop 02/21/18 at 18:44 Potassium Chloride 100 ml @ As Directed STK-MED ONCE IV ; Start 02/20/18 at 19 :47; Stop 02/20/18 at 19:48; Status DC Vitamin D (Vitamin D3) 1,000 unit DAILY PO Last administered on 02/21/18at 08: 03; Start 02/21/18 at 09:00 Cyclosporine (Restasis) 1 drop BID OU ; Start 02/21/18 at 09:00 Nitroglycerin (Nitrostat) 0.4 mg PRN Q5MIN PRN SL CHEST PAIN; Start 02/20/18 at 22:15 Tamsulosin HCl (Flomax) 0.4 mg HS PO Last administered on 02/20/18at 23:13; Start 02/20/18 at 23:00 Aspirin (Children'S Aspirin) 81 mg DAILYWBKFT PO Last administered on at 08:03; Start 02/21/18 at 08:00 Atorvastatin Calcium (Lipitor) 40 mg QHS PO Last administered on 02/20/18at 23: 12; Start 02/20/18 at 23:00 Carvedilol (Coreg) 6.25 mg BIDWMEALS PO Last administered on 02/21/18at 08:02; Start 02/20/18 at 23:00 Donepezil HCl (Aricept) 20 mg DAILY PO Last administered on 02/21/18at 08:02; Start 02/21/18 at 09:00 Fluoxetine HCl (PROzac) 20 mg DAILY PO ; Start 02/21/18 at 09:00 Folic Acid (Folic Acid) 1 mg DAILY PO Last administered on 02/21/18at 08:02; Start 02/21/18 at 09:00 Lisinopril (Prinivil) 5 mg DAILY PO Last administered on 02/21/18at 08:02; Start 02/21/18 at 09:00 Memantine (Namenda) 10 mg BID PO ; Start 02/21/18 at 09:00 Multivitamins/ Calcium (Thera-M Plus) 1 tab DAILY PO Last administered on 02/21at 08:03; Start 02/21/18 at 09:00 Phenytoin Sodium (Dilantin) 300 mg QHS PO Last administered on 02/20/18at 23:12 ; Start 02/20/18 at 23:00 Vitamin E 400 unit DAILY PO Last administered on 02/21/18at 08:02; Start 02/21 at 09:00 Memantine (Namenda) 10 mg 1X ONCE PO Last administered on 02/20/18at 23:12; Start 02/20/18 at 23:00; Stop 02/20/18 at 23:01; Status DC Active Scripts Active Reported Carvedilol 6.25 Mg Tablet 6.25 Mg PO BIDWMEALS Lisinopril 5 Mg Tablet 5 Mg PO DAILY Folic Acid 1 Mg Tablet 1 Mg PO DAILY Aricept (Donepezil Hcl) 10 Mg Tablet 20 Mg PO DAILY Namenda (Memantine Hcl) 10 Mg Tablet 10 Mg PO BID Aspir-Low (Aspirin) 81 Mg Tablet.dr 81 Mg PO DAILY Atorvastatin Calcium 40 Mg Tablet 40 Mg PO QHS Restasis (Cyclosporine) 1 Each Droperette 1 Drop OU BID NITROGLYCERIN SubLingual (Nitroglycerin) 0.4 Mg Tab.subl 0.4 Mg SL PRN Q5MIN PRN Vitamin E 400 Unit Capsule 400 Unit PO DAILY Therapeutic Vit-Mineral Cap (Multivitamins With Min No.7/Fa) 1 Mg Capsule 1 Mg PO DAILY Tamsulosin Hcl 0.4 Mg Cap.er.24h 0.4 Mg PO HS Phenytoin Sodium Extended 300 Mg Capsule 300 Mg PO QHS Fluoxetine Hcl 20 Mg Capsule 20 Mg PO DAILY Fish Oil 1,000 Mg Capsule ([place]-3 Fatty Acids/Fish Oil) 1 Each Capsule 1 Each PO DAILY Vitamin D (Cholecalciferol (Vitamin D3)) 1,000 Unit Tablet 1,000 Unit PO DAILY Exam Vital Signs Vital Signs Date Time Temp Pulse Resp B/P (MAP) Pulse Ox O2 Delivery O2 Flow Rate FiO2 02/21/18 08:02 64 151/74 02/21/18 05:23 20 96 Room Air 02/20/18 21:14 97.7 General Appearance: Alert, Oriented X3, Cooperative, No acute distress HEENT: Atraumatic (negative Beltre sign), EOMI, Mucous membr. moist/pink Respiratory: Clear to auscultation, Normal air movement Heart: Regular rate, No murmurs Abdominal: Soft, No tenderness Neuro: Normal gait, Normal speech, Normal tone Psych/Mental Status: Mental status NL, Mood NL Assessment/Plan Assessment/Plan Mechanical fall Concussion Recent history of treated urinary tract infection and loose stools I advised concussion precautions and stressed fall prevention at home. Follow- up with PCP in the next 3-5 days for recheck return to ED with any new or changing symptoms. COURSE Allergies Coded Allergies Type Severity Reaction Last Updated Verified Penicillins Allergy Severe Swelling 03/25/16 Yes Laboratory Tests Test 02/20/18 17:00 02/20/18 18:59 02/20/18 21:40 02/21/18 07:51 White Blood Count 10.0 x10^3/uL (4.0-11.0) Red Blood Count 4.41 x10^6/uL (4.30-5.70) Hemoglobin 13.5 g/dL (13.0-17.5) Hematocrit 40.9 % (39.0-53.0) Mean Corpuscular Volume 93 fL (79-100) Mean Corpuscular Hemoglobin 31 pg (25-35) Mean Corpuscular Hemoglobin Concent 33 g/dL (31-37) Red Cell Distribution Width 14.1 % (11.5-14.5) Platelet Count 245 x10^3/uL (140-400) Neutrophils (%) (Auto) 82 % (31-73) Lymphocytes (%) (Auto) 8 % (24-48) Monocytes (%) (Auto) 6 % (0-9) Eosinophils (%) (Auto) 2 % (0-3) Basophils (%) (Auto) 1 % (0-3) Neutrophils # (Auto) 8.3 x10^3uL (1.8-7.7) Lymphocytes # (Auto) 0.8 x10^3/uL (1.0-4.8) Monocytes # (Auto) 0.6 x10^3/uL (0.0-1.1) Eosinophils # (Auto) 0.2 x10^3/uL (0.0-0.7) Basophils # (Auto) 0.1 x10^3/uL (0.0-0.2) Sodium Level 134 mmol/L (136-145) Potassium Level 4.2 mmol/L (3.5-5.1) Chloride Level 99 mmol/L (98-107) Carbon Dioxide Level 30 mmol/L (21-32) Anion Gap 5 (6-14) Blood Urea Nitrogen 19 mg/dL (8-26) Creatinine 1.1 mg/dL (0.7-1.3) Estimated GFR (Cockcroft-Gault) 63.0 Glucose Level 177 mg/dL (70-99) Calcium Level 8.9 mg/dL (8.5-10.1) Troponin I Quantitative < 0.017 ng/mL (0-0.055) Urine Collection Type Void Urine Color Yellow Urine Clarity Clear Urine pH 7.0 Urine Specific [place] 1.020 Urine Protein 100 mg/dl (NEG-TRACE) Urine Glucose (UA) Neg mg/dL (NEG) Urine Ketones (Stick) Neg mg/dL (NEG) Urine Blood Neg (NEG) Urine Nitrite Neg (NEG) Urine Bilirubin Neg (NEG) Urine Urobilinogen Dipstick 0.2 mg/dL (0.2 mg/dL) Urine Leukocyte Esterase Neg (NEG) Urine RBC Occ /HPF (0-2) Urine WBC 1-4 /HPF (0-4) Urine Squamous Epithelial Cells Few /LPF Urine Bacteria 0 /HPF (0-FEW) Urine Hyaline Casts Mod /HPF Urine Mucus Slight /LPF Glucose (Fingerstick) 124 mg/dL (70-99) 143 mg/dL (70-99) Current Medications Medications (Trade) Dose Ordered Sig/Chacha Route PRN Reason Start Time Stop Time Status Last Admin Dose Admin Ondansetron HCl (Zofran) 4 mg PRN Q4HRS PRN IV NAUSEA/VOMITING 02/20/18 18:45 02/21/18 18:44 Potassium Chloride 100 ml @ As Directed STK-MED ONCE IV 02/20/18 19:47 02/20/18 19:48 DC Vitamin D (Vitamin D3) 1,000 unit DAILY PO 02/21/18 09:00 02/21/18 08:03 Cyclosporine (Restasis) 1 drop BID OU 02/21/18 09:00 Nitroglycerin (Nitrostat) 0.4 mg PRN Q5MIN PRN SL CHEST PAIN 02/20/18 22:15 Tamsulosin HCl (Flomax) 0.4 mg HS PO 02/20/18 23:00 02/20/18 23:13 Aspirin (Children'S Aspirin) 81 mg DAILYWBKFT PO 02/21/18 08:00 02/21/18 08:03 Atorvastatin Calcium (Lipitor) 40 mg QHS PO 02/20/18 23:00 02/20/18 23:12 Carvedilol (Coreg) 6.25 mg BIDWMEALS PO 02/20/18 23:00 02/21/18 08:02 Donepezil HCl (Aricept) 20 mg DAILY PO 02/21/18 09:00 02/21/18 08:02 Fluoxetine HCl (PROzac) 20 mg DAILY PO 02/21/18 09:00 Folic Acid (Folic Acid) 1 mg DAILY PO 02/21/18 09:00 02/21/18 08:02 Lisinopril (Prinivil) 5 mg DAILY PO 02/21/18 09:00 02/21/18 08:02 Memantine (Namenda) 10 mg BID PO 02/21/18 09:00 Multivitamins/ Calcium (Thera-M Plus) 1 tab DAILY PO 02/21/18 09:00 02/21/18 08:03 Phenytoin Sodium (Dilantin) 300 mg QHS PO 02/20/18 23:00 02/20/18 23:12 Vitamin E 400 unit DAILY PO 02/21/18 09:00 02/21/18 08:02 Memantine (Namenda) 10 mg 1X ONCE PO 02/20/18 23:00 02/20/18 23:01 DC 02/20/18 23:12 Orders Procedure Category Date Status Time Vital Signs ER 02/20/18 Transmitted 16:33 Bp Monitoring ER 02/20/18 Transmitted 16:33 Maintenance Electrician ER 02/20/18 Transmitted 16:33 Saline Lock ER 02/20/18 Transmitted 16:33 Cbc W Autodiff LAB 02/20/18 Complete 16:33 Basic Metabolic Panel LAB 02/20/18 Complete 16:33 Troponin I LAB 02/20/18 Complete 16:33 Ua, Cult If Indicated LAB 02/20/18 Complete 16:33 Ct Head Wo Contrast CT 02/20/18 Resulted 16:33 12 Lead Ekg EKG 02/20/18 Complete 16:33 Pulse Oximetry: EMERSON 02/20/18 In Process Standing Order 16:33 [place] Order ADT 02/20/18 Transmitted 18:33 Code Status CODE 02/20/18 Transmitted 18:33 Vital Signs, Per EMERSON 02/20/18 In Process Protocol 18:33 [place]e Diabetic DIET 02/21/18 Transmitted Assoc Diet Breakfast Ambulate With EMERSON 02/20/18 In Process Assistance 18:33 Ondansetron Pf PHA 02/20/18 In Process (Zofran) 18:45 Neuro Check Q 4 Hrs EMERSON 02/20/18 In Process 18:33 Potassium Chloride PHA 02/20/18 Complete 20meq (Kcl Premix 20m 19:47 Apply Vlad Stockings EMERSON 02/20/18 In Process And Epi Wr 19:58 Pneumatic Compression EMERSON 02/20/18 In Process Device 19:58 Fall Precautions EMERSON 02/20/18 In Process 20:01 Admit Orders ADT 02/20/18 Transmitted Mrsa, Pcr LAB 02/20/18 In Process 21:42 Cholecalciferol PHA 02/21/18 In Process (Vitamin D3) (Vitamin 09:00 Cyclosporine 0.05% PHA 02/21/18 In Process Opth (Restasis) 09:00 Nitroglycerin PHA 02/20/18 In Process Sublingual (Nitrostat) 22:15 Aspirin (Children's PHA 02/21/18 In Process Aspirin) 08:00 Donepezil Hcl PHA 02/21/18 In Process (Aricept) 09:00 Fluoxetine Hcl PHA 02/21/18 In Process (Prozac) 09:00 Folic Acid (Folic PHA 02/21/18 In Process Acid) 09:00 Lisinopril (Prinivil) PHA 02/21/18 In Process 09:00 Memantine (Namenda) PHA 02/21/18 In Process 09:00 Multivitamin With PHA 02/21/18 In Process Mineral (Thera-M Plus) 09:00 Vitamin E. PHA 02/21/18 In Process 09:00 Tamsulosin (Flomax) PHA 02/20/18 In Process 23:00 Atorvastatin Calcium PHA 02/20/18 In Process (Lipitor) 23:00 Carvedilol (Coreg) PHA 02/20/18 In Process 23:00 Phenytoin Sodium PHA 02/20/18 In Process Extended (Dilantin) 23:00 Memantine (Namenda) PHA 02/20/18 Complete 23:00 Rehab Screening (Pt, REHAB 02/22/[address], [address]) 07:00 Dietary Cons For NOURISH 02/21/18 Transmitted Malnutrition 00:08 High Risk Dc CONS 02/21/18 Transmitted Readmission 05:31 Rehab Screening (Pt, REHAB 02/22/18 Logged [address], St) 07:00 Vital Signs Date Time Temp Pulse Resp B/P (MAP) Pulse Ox O2 Delivery O2 Flow Rate FiO2 02/21/18 08:02 64 151/74 02/21/18 05:23 20 96 Room Air 02/20/18 21:14 97.7 GEOVANNA BARNEY DO Feb 21, 2018 08:18
[2018-02-21] MEDS ORDERED: VITAMIN E. 400 UNIT CAPSULE. PO SCH (09:00)
[2018-02-21] MEDS ORDERED: MEMANTINE 10 MG TABLET. PO SCH (09:00)
[2018-02-21] MEDS ORDERED: FLUoxetine HCL 20 MG CAPSULE PO SCH (09:00)
[2018-02-21] MEDS ORDERED: CHOLECALCIFEROL (VITAMIN D3) 1,000 UNIT TABLET PO SCH (09:00)
[2018-02-21] MEDS ORDERED: FOLIC ACID 1 MG TABLET PO SCH (09:00)
[2018-02-21] MEDS ORDERED: DONEPEZIL HCL 10 MG TABLET PO SCH (09:00)
[2018-02-21] MEDS ORDERED: LISINOPRIL 5 MG TABLET. PO SCH (09:00)
[2018-02-21] MEDS ORDERED: MULTIVITAMIN with MINERAL TABLET. PO SCH (09:00)
[2018-02-21] MEDS ORDERED: cycloSPORINE 0.05% OPTH 1 DROP DROPERETTE OU SCH (09:00)
--- NOTE | 2018-02-21 09:07 | NUR ---
Pt provided discharge instructions, IV discontinued, pt verbalized understanding. Pt awaiting for to arrive to take pt home.
--- NOTE | 2018-02-21 11:33 | NUR ---
Pt getting anxious about when will be here to take him home, this nurse called and stated that they will be here in the hour. This nurse will let the pt know. Will CTM.
--- NOTE | 2018-02-21 12:06 | NUR ---
Pt's family here for pickup. Pt is going to stay for lunch and then discharge. Will CTM.
--- NOTE | 2018-02-21 12:46 | NUR ---
Pt off the unit.
== END 2018-02-21 12:47 | disposition home or self-care (01) | DRG 90 ==
LOC: ER 15:51 → ICU 18:54
PROVIDERS: ADMIT Neuromusculoskeletal Medicine & OMM; ATTEND Neuromusculoskeletal Medicine & OMM
DX: S06.0X0A Concussion without loss of consciousness, initial encounter (principal); F03.90 Unspecified dementia, unspecified severity, without behavioral disturbance, psychotic disturbance, mood disturbance, and anxiety; I10 Essential (primary) hypertension; I25.10 Atherosclerotic heart disease of native coronary artery without angina pectoris; W01.0XXA Fall on same level from slipping, tripping and stumbling without subsequent striking against object, initial encounter; F32.9 Major depressive disorder, single episode, unspecified; M19.90 Unspecified osteoarthritis, unspecified site; Z87.440 Personal history of urinary (tract) infections; Y92.009 Unspecified place in unspecified non-institutional (private) residence as the place of occurrence of the external cause; Z90.89 Acquired absence of other organs; Z88.0 Allergy status to penicillin; Y93.89 Activity, other specified; Y99.8 Other external cause status
CPT/HCPCS: 36415; 70450; 80048; 81001; 82947; 84484; 85025; 87641; 93005; 99285-25

== ENCOUNTER → 2018-05-18 | Outpatient (CLI) | payer MEDICARE ==
[~2018-05-18] MED LIST changes: -AMLO2.5T3 PO; +AMLO2.5T5 PO; +AMLO5TAB10 PO; -AMLO5TAB7 PO; -CARV3.122 PO; +CARV3.1230 PO; +CARV6.2541 PO; +CYAN10002 IJ; +HYDR-2155 PO; -HYDR-2758 PO; +IBUP400T18 PO; +LISI-338 PO
--- NOTE | 2018-05-18 23:27 | RAD ---
Examination: DUPLEX LOWER EXTREMITY BILAT History: Peripheral vascular disease. Myocardial infarction 2 years ago. Comparison/Correlation: None Findings: Bilateral lower extremity arterial duplex ultrasound exam was performed. Color Doppler, spectral Doppler, grayscale imaging was performed. Peak systolic velocities mean (in centimeters per second) were identified: Right Common femoral artery 73 Deep femoral artery 127 Superficial femoral artery 83-92 Popliteal artery 102 Posterior tibial artery 45 Peroneal 60 Intervertebral artery 129 Dorsalis pedis artery 48 Left Common femoral artery 103 Deep femoral artery 77 Superficial femoral artery 85-105 Popliteal artery 71 Posterior tibial artery 37-47 Peroneal artery 33 Anterior tibial artery 88 Dorsalis pedis artery 72 Right posterior tibial artery was technically difficult to delineate. Biphasic waveforms are identified throughout with exception of the left distal posterior tibial artery and left dorsalis pedis artery which have monophasic waveforms. Diffuse plaque is identified and some of it is calcified. Impression: No focal hemodynamically significant stenotic lesion suspected. Diffuse plaque is present however bilaterally. Electronically signed by: Kamari Hernandez MD (05/18/2018 3:28 PM) [facility]
== END | disposition home or self-care (01) ==
LOC: US 12:47
PROVIDERS: ATTEND Family Medicine
DX: I70.203 Unspecified atherosclerosis of native arteries of extremities, bilateral legs (principal); I73.89 Other specified peripheral vascular diseases; I25.2 Old myocardial infarction
CPT/HCPCS: 93925

== ENCOUNTER 2018-07-08 10:39 | Emergency (ER) | payer MEDICARE ==
[~2018-07-08] VITALS: Ht 180.3 cm; Wt 74.8 kg
[~2018-07-08 10:39] MED LIST changes: -CYAN10002 IJ; -IBUP400T18 PO
--- NOTE | 2018-07-08 11:03 | PHYS DOC ---
Past History Past Medical History: Anemia, Arthritis, Dementia, Depression Past Surgical History: Tonsillectomy Smoking: Non-smoker Alcohol Use: Rarely Drug Use: None Adult General Chief Complaint Chief Complaint: MECHANICAL FALL HPI HPI Patient is a 87-year-old male who presents with occipital pain. Patient had a mechanical fall, his walker was getting away from him yesterday. He fell backwards striking his head. No loss of consciousness. Patient has a history of an intracranial shunt. No nausea or vomiting. No change in vision. No change in behavior per his son who witnessed the fall and lives with him.[] Review of Systems Review of Systems Constitutional: Denies fever or chills [] Eyes: Denies change in visual acuity, redness, or eye pain [] HENT: Denies nasal congestion or sore throat [] Respiratory: Denies cough or shortness of breath [] Cardiovascular: No chest pain or palpitations[] GI: Denies abdominal pain, nausea, vomiting, bloody stools or diarrhea [] : Denies dysuria or hematuria [] Musculoskeletal: Denies back pain or joint pain [] Integument: Denies rash or skin lesions [] Neurologic: Denies focal weakness or sensory changes [] Endocrine: Denies polyuria or polydipsia [] All other systems were reviewed and found to be within normal limits, except as documented in this note. Allergies Allergies Allergies Coded Allergies Type Severity Reaction Last Updated Verified Penicillins Allergy Severe Swelling 03/25/16 Yes Physical Exam Physical Exam Constitutional: Well developed, well nourished, no acute distress, non-toxic appearance. [] HENT: Normocephalic, tenderness in the left occipital region, no crepitus, no step off, bilateral external ears normal, TMs are clearno blood, no fluid, oropharynx moist, no oral exudates, nose normal. [] Eyes: PERRLA, EOMI, conjunctiva normal, no discharge. [] Neck: Normal range of motion, tenderness in the left upper paraspinal musculature. No midline step-off or crepitus. supple, no stridor. [] Cardiovascular:Heart rate regular rhythm, no murmur [] Lungs & Thorax: Bilateral breath sounds clear to auscultation [] Abdomen: Bowel sounds normal, soft, no tenderness, no masses, no pulsatile masses. [] Skin: Warm, dry, no erythema, no rash. [] Back: No tenderness, no CVA tenderness. [] Extremities: Tenderness in the soft tissues of his left forearm with an abrasion present. No suturable wound. no cyanosis, no clubbing, ROM intact, no edema. [] Neurologic: Alert and oriented X 2, normal motor function, normal sensory function, no focal deficits noted. [] Psychologic: Affect flat, mood normal. [] EKG EKG [] Radiology/Procedures Radiology/Procedures CT HEAD AND CERVICAL SPINE WITHOUT CONTRAST History: FALL, HEAD AND NECK PAIN. HX OF INTRACRANIAL SHUNT Comparison: CT head without contrast, February 20. CT cervical spine without contrast July 05, 2017.. Procedure: Axial images are obtained of the head from the skull base through the vertex without IV contrast. Noncontrast helical CT of the cervical spine was performed. Axial, sagittal, and coronal reconstructions were obtained. Findings: Right frontal shunt catheter is in stable position, tip terminates in the left thalamus. Anterior third ventricle is prominent but unchanged. The lateral ventricles are decompressed, unchanged. Sulci are prominent compatible with cerebral atrophy. Mild periventricular white matter changes, probably due to chronic small vessel schema disease. No mass-effect, midline shift, hemorrhage or obvious acute infarction is identified. Basilar cisterns are patent. Bone windows demonstrate no significant calvarial abnormality. The visualized paranasal sinuses are clear. Mastoid air cells are well aerated. There is no evidence of acute fracture or acute malalignment of the cervical spine. Multilevel facet hypertrophy. No perched or jumped facets. The alignment is stable. There is minimal grade 1 anterolisthesis of C4 on C5, C7 on T1, and T1 on T2. Disc space narrowing and degenerative endplate spurring. There is retroverted odontoid soft tissue thickening and calcification. No disruption of the craniovertebral junction. 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 Bilateral carotid artery calcifications.. The visualized lung apices are clear. IMPRESSION: 1. No acute intracranial abnormality. 2. Stable ventricles and right frontal shunt catheter. 3. No acute fracture of the cervical spine. 4. 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 5. Stable left parotid mass.[] Course & Med Decision Making Course & Med Decision Making Pertinent Labs and Imaging studies reviewed. (See chart for details) Medical decision making: There is no evidence of intracranial mass or bleed, no evidence of skull fracture or cervical spine fracture. No evidence of shunt dysfunction.[] Dragon Disclaimer Dragon Disclaimer This electronic medical record was generated, in whole or in part, using a voice recognition dictation system. Departure Departure: Impression: Primary Impression: Closed head injury Additional Impression: Abrasion of left forearm, initial encounter Disposition: HOME, SELF-CARE Condition: IMPROVED Referrals: CHRISTIANO JOSUE MD (PCP) Follow-up in 2 days Patient Instructions: Abrasions, Head Injury, Adult Additional Instructions: Follow-up with your regular doctor in 2 days. Return to the ER if worsening pain or any other concerns. Scripts Ibuprofen (IBUPROFEN) 400 Mg Tablet 1 TAB PO TID for pain, #30 TAB 0 Refills Prov: ADELINA MANZANARES DO 07/08/18 Problem Qualifiers Primary Impression: Closed head injury Encounter type: initial encounter Qualified Codes: S09.90XA - Unspecified injury of head, initial encounter ADELINA MANZANARES DO Jul 08, 2018 11:03
--- NOTE | 2018-07-08 11:28 | RAD ---
PQRS Compliance Statement: One or more of the following individualized dose reduction techniques were utilized for this examination: 1. Automated exposure control 2. Adjustment of the mA and/or kV according to patient size 3. Use of iterative reconstruction technique CT HEAD AND CERVICAL SPINE WITHOUT CONTRAST History: FALL, HEAD AND NECK PAIN. HX OF INTRACRANIAL SHUNT Comparison: CT head without contrast, February 20. CT cervical spine without contrast July 05, 2017.. Procedure: Axial images are obtained of the head from the skull base through the vertex without IV contrast. Noncontrast helical CT of the cervical spine was performed. Axial, sagittal, and coronal reconstructions were obtained. Findings: Right frontal shunt catheter is in stable position, tip terminates in the left thalamus. Anterior third ventricle is prominent but unchanged. The lateral ventricles are decompressed, unchanged. Sulci are prominent compatible with cerebral atrophy. Mild periventricular white matter changes, probably due to chronic small vessel schema disease. No mass-effect, midline shift, hemorrhage or obvious acute infarction is identified. Basilar cisterns are patent. Bone windows demonstrate no significant calvarial abnormality. The visualized paranasal sinuses are clear. Mastoid air cells are well aerated. There is no evidence of acute fracture or acute malalignment of the cervical spine. Multilevel facet hypertrophy. No perched or jumped facets. The alignment is stable. There is minimal grade 1 anterolisthesis of C4 on C5, C7 on T1, and T1 on T2. Disc space narrowing and degenerative endplate spurring. There is retroverted odontoid soft tissue thickening and calcification. No disruption of the craniovertebral junction. 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 Bilateral carotid artery calcifications.. The visualized lung apices are clear. IMPRESSION: 1. No acute intracranial abnormality. 2. Stable ventricles and right frontal shunt catheter. 3. No acute fracture of the cervical spine. 4. 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 5. Stable left parotid mass. Electronically signed by: Michelet Low MD (07/08/2018 11:25 AM) [id number]
[2018-07-08] MEDS ORDERED: IBUP400T18 PO (11:41)
[2018-07-08 11:44] VITALS: BP 156/73
== END 2018-07-08 11:50 | disposition home or self-care (01) ==
LOC: ER 10:39
DX: S09.8XXA Other specified injuries of head, initial encounter (principal); S50.812A Abrasion of left forearm, initial encounter; M19.90 Unspecified osteoarthritis, unspecified site; F32.9 Major depressive disorder, single episode, unspecified; Z86.2 Personal history of diseases of the blood and blood-forming organs and certain disorders involving the immune mechanism; Z88.0 Allergy status to penicillin; W18.09XA Striking against other object with subsequent fall, initial encounter; Y93.89 Activity, other specified; Y92.89 Other specified places as the place of occurrence of the external cause; Y99.8 Other external cause status
CPT/HCPCS: 70450; 72125; 99284